=== PATIENT | female | born 1975 | race Caucasian/White ===

== ENCOUNTER 2019-01-21 15:07 | Inpatient (IN) | payer OTHER ==
[~2019-01-21] VITALS: Ht 165.1 cm; Wt 59.9 kg
--- NOTE | 2019-01-21 15:28 | NUR ---
SE RECIBE PACIENTE QUE REFIERE PADECER DE APENDICITIS.
[2019-01-23] MEDS ORDERED: PERCOCET 5-3251 EACH PO (10:43)
[2019-01-23] MEDS ORDERED: PRILOSEC OTC20 MG PO (10:43)
[2019-01-23] MEDS ORDERED: ACIDOPHILUS PR1 EAC1 PO (10:44)
== END 2019-01-23 11:18 | disposition home or self-care (01) | DRG 343 ==
LOC: ER 15:07 → SURG 15:55 → SEC-K 15:55 → SURG-SUITE 19:16 → SURG 19:23
PROVIDERS: ADMIT Surgery
PROC: 0DTJ4ZZ Resection of Appendix, Percutaneous Endoscopic Approach (ICD-10-PCS; principal; 2019-01-21 16:00)
DX: K35.890 Other acute appendicitis without perforation or gangrene (principal)